=== PATIENT | male | born 1985 | race Two or more races ===

== ENCOUNTER 2017-06-24 01:09 | Emergency (ER) | payer SELFPAY ==
[~2017-06-24] VITALS: Ht 165.1 cm; Wt 59.9 kg
--- NOTE | 2017-06-24 01:29 | Emergency Room Report ---
History of Present Illness General Chief Complaint: Generalized Weakness Source: Patient Present Illness HPI This is a 31-year-old male with no past history. He presents with chief complaint of joint weakness. Onset for last to 3 days. Lack of appetite. No nausea no vomiting. No abdominal pain. He does complain of achiness to bilateral knee. No cough or congestion. No runny nose. Allergies: Coded Allergies: No Known Allergies (Unverified , 06/24/17) Patient History Past Medical History: none, see triage record, old chart reviewed Past Surgical History: none Pertinent Family History: none Social History: Denies: smoking Immunizations: other Reviewed Nursing Documentation: PMH: Agreed; PSxH: Agreed Nursing Documentation-PMH Past Medical History: No Stated History Review of Systems Constitutional: Reports: weakness Eye: Denies: eye pain, blurred vision ENT: Denies: ear pain, nose congestion, throat swelling Respiratory: Denies: cough, shortness of breath Cardiovascular: Denies: chest pain, palpitations Gastrointestinal: Denies: abdominal pain, diarrhea, nausea, vomiting Musculoskeletal: Denies: back pain, joint pain Skin: Denies: rash Neurological: Denies: headache, numbness Endocrine: Denies: increased thirst, increased urine Hematologic/Lymphatic: Denies: easy bruising All Other Systems: negative except mentioned in HPI Physical Exam Vital Signs Date Time Temp Pulse Resp B/P (MAP) Pulse Ox O2 Delivery O2 Flow Rate FiO2 06/24/17 01:18 97.4 72 16 135/87 99 Room Air 97.3 vitals normal Sp02 EP Interpretation: reviewed, normal General Appearance: well appearing, no apparent distress, alert Head: normocephalic, atraumatic Eyes: bilateral eye PERRL, bilateral eye EOMI ENT: hearing grossly normal, normal pharynx Neck: full range of motion, supple, no meningismus Respiratory: chest non-tender, lungs clear, normal breath sounds Cardiovascular #1: regular rate, rhythm, no murmur Gastrointestinal: normal bowel sounds, non tender, no mass, no organomegaly, no bruit, non-distended Musculoskeletal: back normal, gait/station normal, normal range of motion Psychiatric: mood/affect normal Skin: warm/dry Medical Decision Making Diagnostic Impression: Primary Impression: Episode of generalized weakness ER Course Patient with generalize weakness. No evidence of dehydration. No evidence of infection. We'll discharge home. Last Vital Signs Date Time Temp Pulse Resp B/P (MAP) Pulse Ox O2 Delivery O2 Flow Rate FiO2 06/24/17 01:18 97.4 72 16 135/87 99 Room Air 97.3 Status: unchanged Disposition: HOME, SELF-CARE Condition: Stable Patient Instructions: Weakness Additional Instructions: Follow-up with your doctor in 7 days. Return if worse. ALEXIS SAMANIEGO M.D. Jun 24, 2017 01:29
[2017-06-24] MEDS ORDERED: Ketorolac 30mg Inj IV ONE (01:30)
[2017-06-24 01:40] VITALS: BP 135/87
[2017-06-24 02:09] LABS: EOSINOPHILS % (AUTO) 5.8 % (0.0-3.0); HEMATOCRIT 46.4 % (42.0-52.0); HEMOGLOBIN 16.6 G/DL (14.2-18.0); LYMPHOCYTES % (AUTO) 23.5 % (20.0-45.0); MEAN CORPUSCULAR VOLUME 86 FL (80-99); MONOCYTES % (AUTO) 7.3 % (1.0-10.0); NEUTROPHILS % (AUTO) 61.4 % (45.0-75.0); PLATELET COUNT 244 K/UL (150-450); RED BLOOD COUNT 5.41 M/UL (4.70-6.10); RED CELL DISTRIBUTION WIDTH 11.1 % (11.6-14.8)
[2017-06-24 02:22] LABS: APPEARANCE,URINE CLEAR; BILIRUBIN, URINE NEGATIVE (NEGATIVE); COLOR,URINE PALE YELLOW; GLUCOSE, URINE (UA) NEGATIVE (NEGATIVE); KETONES,URINE NEGATIVE (NEGATIVE); LEUKOCYTE ESTERASE ,URINE 1+ (NEGATIVE); NITRITE,URINE NEGATIVE (NEGATIVE); PH,URINE 6.5 (4.5-8.0); PROTEIN,URINE NEGATIVE (NEGATIVE); UROBILINOGEN,URINE NORMAL MG/DL (0.0-1.0)
[2017-06-24 02:23] LABS: ANION GAP 6 mmol/L (5-15); BLOOD UREA NITROGEN 13 mg/dL (7-18); CALCIUM 9.7 MG/DL (8.5-10.1); CARBON DIOXIDE 31 MMOL/L (21-32); CHLORIDE 101 MMOL/L (98-107); CREATININE 1.3 MG/DL (0.55-1.30); SODIUM 138 MMOL/L (136-145)
[2017-06-24 02:55] VITALS: BP 135/87
== END 2017-06-24 02:56 | disposition home or self-care (01) ==
LOC: EMR 01:32
DX: R53.1 Weakness (principal)
CPT/HCPCS: 36415; 80048; 81001; 85025; 96374; 96375; 99284; J1885

== ENCOUNTER 2019-10-03 03:07 | Emergency (ER) | payer SELFPAY ==
[~2019-10-03] VITALS: Ht 157.5 cm; Wt 63.5 kg
[2019-10-03 03:15] VITALS: BP 118/85
--- NOTE | 2019-10-03 03:15 | NUR ---
ED Nurse Note: pt jose from [facility] arm pain but unable to state which arm hurts or give a rating on of pain on pain scale. Pt only able to repeatedly call out "Doctor!" even with ERMD present in room. Pt smileyo x 1-2, ambulates with steady gait. Pt michelle historian. VSS no ss of distress noted. Awaiting further orders. Addendum: 10/03/19 at 0359 by SCOTT ED Nurse Note: pt jose from [facility] arm pain but unable to state which arm hurts or give a rating on of pain on pain scale. Pt only able to repeatedly call out "Doctor!" even with ERMD present in room. Pt smileyo x 1-2, ambulates with steady gait. Pt michelle chapmanian. VSS no ss of distress noted. Awaiting further orders. ERMD at bedside
--- NOTE | 2019-10-03 03:19 | Emergency Room Report ---
History of Present Illness General Chief Complaint: Pain Source: EMS Present Illness HPI Disclaimer: Please note that this report is being documented using DRAGON technology. This can lead to erroneous entry secondary to incorrect interpretation by the dictating instrument. HPI: 33-year-old male brought in by EMS for evaluation of arm pain. EMS states they picked him up on the street after he called complaining of arm pain. He provided no information to EMS and I can obtain no information from the patient. He is curled up in a ball intermittently yelling out. May be hallucinating or intoxicated. Unable to obtain other information. He is mumbling incoherently but moving all his extremities without limitation. PMH: Unknown PSH: Unknown Allergies: Unknown Social Hx: Unknown Allergies: Coded Allergies: No Known Allergies (Unverified , 06/24/17) COVID-19 Screening Contact w/high risk pt: No Experienced COVID-19 symptoms?: No COVID-19 Testing performed LOADING DOCK HAND: No Nursing Documentation-PMH Past Medical History Deferred: Pt Cognitively Impaired Review of Systems All Other Systems: negative except mentioned in HPI Physical Exam Vital Signs Date Time Temp Pulse Resp B/P (MAP) Pulse Ox O2 Delivery O2 Flow Rate FiO2 10/03/19 03:05 98.4 101 22 118/85 (96) 99 Room Air General: Awake, crying, HEENT: NC/AT. EOMI. Cardiovascular: Tachycardic. S1 and S2 normal. No murmur appreciated Resp: Normal work of breathing. No cough, wheezing or crackles appreciated Abdomen: Abdomen is soft, nondistended. Nontender Skin: Intact. No abrasions, laceration or rash over the exposed skin MSK: Normal tone and bulk. Moving all extremities. No obvious deformity. No palpable step-off or deformities in the upper extremities. Full range of motion in the right and left upper extremities at all major joints. Neuro: Awake, intermittently crying, unable to obtain any information Medical Decision Making Diagnostic Impression: Primary Impression: Alcohol intoxication ER Course Is a 33-year-old male presenting by EMS for evaluation of arm pain as the chief complaint. Patient appears intoxicated, either alcohol or other substance. He is mumbling coherently and cannot give me a clear history or even stated complaint at this time. Obtained labs showing elevated alcohol level but negative tox screen and otherwise unremarkable labs. He will be allowed to metabolize in the ED and reevaluated once clinically sober. It does not appear patient suffered any significant arm injury as I feel no deformity, the patient has full range of motion and does not appear to have any tenderness on palpation. He can be reevaluated once sober. Signed out to oncoming physician pending sobriety, reevaluation ultimate disposition. Labs Test 10/03/19 03:45 10/03/19 04:14 White Blood Count 8.3 K/UL (4.8-10.8) Red Blood Count 5.61 M/UL (4.70-6.10) Hemoglobin 16.1 G/DL (14.2-18.0) Hematocrit 49.3 % (42.0-52.0) Mean Corpuscular Volume 88 FL (80-99) Mean Corpuscular Hemoglobin 28.7 PG (27.0-31.0) Mean Corpuscular Hemoglobin Concent 32.7 G/DL (32.0-36.0) Red Cell Distribution Width 11.1 % (11.6-14.8) Platelet Count 242 K/UL (150-450) Mean Platelet Volume 6.6 FL (6.5-10.1) Neutrophils (%) (Auto) 74.1 % (45.0-75.0) Lymphocytes (%) (Auto) 15.3 % (20.0-45.0) Monocytes (%) (Auto) 3.7 % (1.0-10.0) Eosinophils (%) (Auto) 5.4 % (0.0-3.0) Basophils (%) (Auto) 1.5 % (0.0-2.0) Sodium Level 145 MMOL/L (136-145) Potassium Level 3.8 MMOL/L (3.5-5.1) Chloride Level 107 MMOL/L (98-107) Carbon Dioxide Level 27 MMOL/L (21-32) Anion Gap 11 mmol/L (5-15) Blood Urea Nitrogen 12 mg/dL (7-18) Creatinine 1.1 MG/DL (0.55-1.30) Estimat Glomerular Filtration Rate > 60 mL/min (>60) Glucose Level 120 MG/DL (74-106) Calcium Level 8.9 MG/DL (8.5-10.1) Total Bilirubin 0.6 MG/DL (0.2-1.0) Aspartate Amino Transf (AST/SGOT) 26 U/L (15-37) Alanine Aminotransferase (ALT/SGPT) 42 U/L (12-78) Alkaline Phosphatase 103 U/L (46-116) Total Protein 7.8 G/DL (6.4-8.2) Albumin 4.3 G/DL (3.4-5.0) Globulin 3.5 g/dL Albumin/Globulin Ratio 1.2 (1.0-2.7) Salicylates Level 0.7 ug/mL (2.8-20) Acetaminophen Level < 2 MCG/ML (10-30) Serum Alcohol 294 mg/dL Troponin I 0.000 ng/mL (0.000-0.056) Urine Opiates Screen Negative (NEGATIVE) Urine Barbiturates Screen Negative (NEGATIVE) Phencyclidine (PCP) Screen Negative (NEGATIVE) Urine Amphetamines Screen Negative (NEGATIVE) Urine Benzodiazepines Screen Negative (NEGATIVE) Urine Cocaine Screen Negative (NEGATIVE) Urine Marijuana (THC) Screen Negative (NEGATIVE) Last Vital Signs Date Time Temp Pulse Resp B/P (MAP) Pulse Ox O2 Delivery O2 Flow Rate FiO2 10/03/19 03:05 98.4 101 22 118/85 (96) 99 Room Air Signed Out To: Marcial Cardenas MD Oct 03, 2019 03:19
--- NOTE | 2019-10-03 03:51 | NUR ---
ED Nurse Note: IV line initiated, blood drawn and sent to lab
[2019-10-03 04:03] LABS: BASOPHILS % (AUTO) 1.5 % (0.0-2.0); EOSINOPHILS % (AUTO) 5.4 % (0.0-3.0); HEMATOCRIT 49.3 % (42.0-52.0); HEMOGLOBIN 16.1 G/DL (14.2-18.0); LYMPHOCYTES % (AUTO) 15.3 % (20.0-45.0); MEAN CORPUSCULAR VOLUME 88 FL (80-99); MONOCYTES % (AUTO) 3.7 % (1.0-10.0); NEUTROPHILS % (AUTO) 74.1 % (45.0-75.0); PLATELET COUNT 242 K/UL (150-450); RED BLOOD COUNT 5.61 M/UL (4.70-6.10); RED CELL DISTRIBUTION WIDTH 11.1 % (11.6-14.8); WHITE BLOOD COUNT 8.3 K/UL (4.8-10.8)
[2019-10-03 04:19] LABS: ALANINE AMINOTRANSFERASE 42 U/L (12-78); ALBUMIN 4.3 G/DL (3.4-5.0); ALBUMIN/GLOBULIN RATIO 1.2 (1.0-2.7); ALKALINE PHOSPHATASE 103 U/L (46-116); ANION GAP 11 mmol/L (5-15); ASPARTATE AMINO TRANSFERASE 26 U/L (15-37); BILIRUBIN,TOTAL 0.6 MG/DL (0.2-1.0); BLOOD UREA NITROGEN 12 mg/dL (7-18); CALCIUM 8.9 MG/DL (8.5-10.1); CARBON DIOXIDE 27 MMOL/L (21-32); CHLORIDE 107 MMOL/L (98-107); CREATININE 1.1 MG/DL (0.55-1.30); POTASSIUM 3.8 MMOL/L (3.5-5.1); SODIUM 145 MMOL/L (136-145)
--- NOTE | 2019-10-03 04:19 | NUR ---
ED Nurse Note: Pt able to provide UA sample. UA sent to lab. Pt has fleeting lucid moments. ERMD notified.
--- NOTE | 2019-10-03 05:17 | NUR ---
ED Nurse Note: pt sleeping in bed, VSS no ss of distress noted. will continue to monitor.
[2019-10-03 05:50] VITALS: BP 122/81
--- NOTE | 2019-10-03 06:46 | NUR ---
ED Nurse Note: pt sleeping in bed, vss no ss of distress noted. will continue to monitor.
--- NOTE | 2019-10-03 07:00 | NUR ---
ED Nurse Note: Received patient in bed, patient is resting comfortably.
[2019-10-03 07:37] VITALS: BP 130/72
[2019-10-03 07:43] VITALS: BP 122/81
--- NOTE | 2019-10-03 07:44 | NUR ---
ER DISCHARGE NOTE: Patient is cleared to be discharged per VLADIMIR Gonzalez at bedside, patient is now fully awake, pt is aox4, on room air, with stable vital signs, in no acute distress, breathing unlabored and even, speaking in full sentences. pt was given dc and prescription instructions, pt was able to verbalize understanding, pt id band and iv site removed without complications. pt is able to ambulate with steady gait. pt took all belongings. patient reports he will walk home, or maybe call [employer] on the way by his phone.
== END 2019-10-03 07:45 | disposition home or self-care (01) ==
LOC: EDBD 03:07 → EMR 03:36
DX: F10.129 Alcohol abuse with intoxication, unspecified (principal)
CPT/HCPCS: 36415; 80053; 80307; 84484; 85025; 99284; G0480